=== PATIENT | female | born 1940 | race Caucasian/White ===

== ENCOUNTER 2020-11-29 16:43 | Emergency (ER) | payer MEDICARE, MEDICAID ==
--- NOTE | 2020-11-29 17:32 | EDM.PDOC ---
ED HPI GENERAL MEDICAL PROBLEM - General Chief Complaint: Lower Extremity Injury/Pain Stated Complaint: RT HIP/FELL Time Seen by Provider: 11/29/20 16:45 Source of Information: Reports: Patient, RN History Limitations: Reports: No Limitations - History of Present Illness INITIAL COMMENTS - FREE TEXT/NARRATIVE: States that she was standing in her house when she went to turn and her right toe got caught and she then fell. She laid on the floor trying to get to the phone for about an hour before getting help. She is complaining of right hip pain. She denies any numbness or tingling. Onset: Sudden Location: Reports: Lower Extremity, Right Quality: Reports: Sharp Right Hip Pain Score (Numeric/FACES): 8 - Related Data Allergies Allergy/AdvReac Type Severity Reaction Status Date / Time indomethacin [From Indocin] Allergy Redness Verified 08/07/18 13:01 indomethacin sodium Allergy Redness Verified 08/07/18 13:01 [From Indocin] meperidine HCl [From Demerol] Allergy Ringing in Verified 08/07/18 13:01 the Ears Penicillins Allergy Anaphylactic Verified 08/07/18 13:01 Shock Home Meds: Home Meds Acetaminophen [Tylenol] 1,000 mg PO Q6H PRN 03/24/13 [History] Furosemide [Lasix] 40 mg PO DAILY 03/24/13 [History] Levothyroxine [Sythroid] 88 mcg PO DAILY 03/24/13 [History] Potassium Chloride 10 meq PO DAILY 03/24/13 [History] Losartan [Cozaar] 50 mg PO DAILY 11/29/20 [History] Past Medical History HEENT History: Reports: Cataract, Glaucoma Gastrointestinal History: Reports: Diverticulosis, Other (See Below) (ulcers) - Past Surgical History HEENT Surgical History: Reports: Cataract Surgery GI Surgical History: Reports: Appendectomy Female Surgical History: Reports: Tubal Ligation Endocrine Surgical History: Reports: Thyroidectomy Musculoskeletal Surgical History: Reports: Other (See Below) (wrist fracture with surgical repair.) Social & Family History - Family History Cardiac: Reports: CAD Endocrine/Metabolic: Reports: Diabetes, Type I, Diabetes, type II Oncologic: Reports: Other (See Below) (kidney) Review of Systems - Review of Systems Review Of Systems: See Below Constitutional: Reports: No Symptoms Eyes: Reports: No Symptoms Ears: Reports: No Symptoms Nose: Reports: No Symptoms Mouth/Throat: Reports: No Symptoms Respiratory: Reports: No Symptoms Cardiovascular: Reports: No Symptoms GI/Abdominal: Reports: No Symptoms Musculoskeletal: Reports: Leg Pain Skin: Reports: No Symptoms Neurological: Reports: Other (forgetful) Psychiatric: Reports: No Symptoms ED EXAM, GENERAL - Physical Exam Exam: See Below Exam Limited By: No Limitations General Appearance: Alert, WD/WN, Moderate Distress Ears: Normal External Exam, Normal Canal, Normal TMs Nose: Normal Inspection Throat/Mouth: Normal Inspection, Normal Oropharynx Head: Atraumatic, Normocephalic Neck: Normal Inspection, Supple, Non-Tender, Full Range of Motion Respiratory/Chest: No Respiratory Distress, Lungs Clear, Normal Breath Sounds, Chest Non-Tender Cardiovascular: Regular Rate, Rhythm, No Edema GI/Abdominal: Normal Bowel Sounds, Soft, Non-Tender Back Exam: Normal Inspection Extremities: Normal Inspection, No Pedal Edema, Other (Pain to the right hip area with any movement or touch.) Neurological: Alert, Oriented Skin Exam: Warm, Dry Course - Vital Signs Last Recorded V/S: Last Vital Signs Temp 97.5 F 11/29/20 16:45 Pulse 64 11/29/20 16:45 Resp 20 11/29/20 16:45 BP 147/74 H 11/29/20 16:45 Pulse Ox 95 11/29/20 16:45 - Orders/Labs/Meds Orders: Active Orders 24 hr Category Date Time Status Hip Min 2V or 3V w Pelvis Rt [CR] Routine Exams 11/29/20 Taken Labs: Laboratory Tests 11/29/20 11/29/20 Range/Units 17:40 17:40 WBC 10.3 (4.0-11.0) 10^3/uL RBC 3.68 L (4.00-5.50) x10^6/uL Hgb 11.8 L (12.0-16.0) g/dL Hct 35.5 L (37.0-47.0) % MCV 96.5 (83.0-97.0) fL MCH 32.1 H (27.0-32.0) pg MCHC 33.2 (32.0-36.0) g/dL RDW Coeff of Eulalio 13.8 (11.0-15.0) % Plt Count 238 (150-400) 10^3/uL Immature Gran % (Auto) 0.4 (0.0-4.9) % Neut % (Auto) 79.7 H (41-71) % Lymph % (Auto) 13.0 L (24-44) % Hardeman % (Auto) 5.6 (0-10) % Eos % (Auto) 0.8 (0-6) % Baso % (Auto) 0.5 (0-1) % Neut # (Auto) 8.20 H (1.80-8.00) x10^3/uL Lymph # (Auto) 1.33 (0.60-5.00) 10^3/uL Hardeman # (Auto) 0.57 (0.00-1.50) 10^3/uL Eos # (Auto) 0.08 (0.00-1.50) 10^3/uL Baso # (Auto) 0.05 (0.00-0.50) 10^3/uL Immature Gran # (Auto) 0.04 (0.00-0.49) 10^3/uL Sodium 142 (136-145) mEq/L Potassium 4.0 (3.5-5.0) mEq/L Chloride 104 (98-106) mEq/L Carbon Dioxide 28 (21-32) mmol/L BUN 26 H (7-18) mg/dL Creatinine 1.4 H (0.6-1.0) mg/dL Est Cr Clr Drug Dosing 24.93 mL/min Estimated GFR (MDRD) 36 L (>=60) mL/min Glucose 121 H (75-99) mg/dL Calcium 8.9 (8.4-10.1) mg/dL Meds: Medications Discontinued Medications Generic Name Dose Route Start Last Admin Trade Name Freq PRN Reason Stop Dose Admin Fentanyl Confirm 11/29/20 16:41 11/29/20 17:51 Fentanyl 100 Mcg/2 Ml Sdv Administered 11/29/20 16:42 Not Given Dose 100 mcg .ROUTE .STK-MED ONE Fentanyl 50 mcg 11/29/20 17:42 11/29/20 17:46 Fentanyl 50 Mcg/Ml Sdv IVPUSH 11/29/20 17:43 50 mcg ONETIME ONE Administration - Re-Assessments/Exams Free Text/Narrative Re-Assessment/Exam: 11/29/20 18:[address] Mendoza [place] [facility] and he is willing to take the pt in transfer tonight. She will be transferred per BLS ambulance to [facility]. Risks of being transferred include uncontrolled pain. benefits of transfer would include retail loss prevention specialist. risk of nontransfer would include increase in pain and improper healing benefit would be to be close to home. She does request transfer. Departure - Departure Time of Disposition: 18:13 Disposition: DC/Tfer to [facility] Condition: Good Clinical Impression: Intertrochanteric fracture, hip - Discharge Information *PRESCRIPTION DRUG MONITORING PROGRAM REVIEWED*: Not Applicable *COPY OF PRESCRIPTION DRUG MONITORING REPORT IN PATIENT YOUSIF: Not Applicable Forms: ED Department Discharge Sepsis Event Note (ED) - Focused Exam Vital Signs: Vital Signs Temp Pulse Resp BP Pulse Ox 11/29/20 16:45 97.5 F 64 20 147/74 H 95 - Problem List & Annotations (1) Intertrochanteric fracture, hip SNOMED Code(s): 912975586 Code(s): S72.143A - DISPLACED INTERTROCHANTERIC FRACTURE OF UNSP FEMUR, INIT Status: Acute Priority: High - Problem List Review Problem List Initiated/Reviewed/Updated: Yes - My Orders Last 24 Hours: My Active Orders 11/29/20 Hip Min 2V or 3V w Pelvis Rt [CR] Routine - Assessment/Plan Last 24 Hours: My Active Orders 11/29/20 Hip Min 2V or 3V w Pelvis Rt [CR] Routine
[2020-11-29] MEDS: fentaNYL 50 MCG/ML SDV IVPUSH ONE ×2 (17:46→18:46)
[2020-11-29] MEDS: fentaNYL 100 MCG/2 ML SDV ONE (17:51)
== END 2020-11-29 19:10 | disposition critical access hospital (66) ==
LOC: CC.ED 16:43
DX: S72.141A Displaced intertrochanteric fracture of right femur, initial encounter for closed fracture (principal); Z88.0 Allergy status to penicillin; Z88.6 Allergy status to analgesic agent; Z79.899 Other long term (current) drug therapy; W17.89XA Other fall from one level to another, initial encounter
CPT/HCPCS: 36415; 80048; 85025; 96374; 96376; 99285-25; J3010

== ENCOUNTER 2020-12-02 09:23 | Inpatient (IN) | payer MEDICARE, MEDICAID ==
[2020-12-02] MEDS ORDERED: Acetaminophen 325 MG Tab PO PRN (12:41)
[2020-12-02] MEDS ORDERED: Cyclobenzaprine 10 MG Tab PO PRN (12:43)
[2020-12-02] MEDS: Acetaminophen/HYDROcodone 325-5 MG Tab PO PRN ×2 (13:00→20:15)
--- NOTE | 2020-12-02 19:17 | HP ---
CHIEF COMPLAINT: Swing bed placement. HISTORY OF PRESENT ILLNESS: Chuyita is an 80-year-old, very pleasant female, well known to me, who fell this past Sunday and sustained a right hip fracture. She went to [place] where Dr. Mendoza did an ORIF on her. She has had an uneventful postop course. She is here for swing bed placement and rehab with PT. For the most part, she is not having any complaints of pain. PAST MEDICAL HISTORY: 1. History of hypertension. 2. Hypothyroidism. 3. Nicotine addiction. 4. Osteoporosis. PAST SURGICAL HISTORY: 1. Appendectomy. 2. Prior cataract surgery. 3. A complete thyroidectomy. 4. History of tubal ligation. 5. Spinal surgery. ALLERGIES: INCLUDE ASPIRIN, CODEINE, VICODIN, DEMEROL, INDOCIN, IODINE, LOTENSIN, SULFA, EGGS, AND SHELLFISH. CURRENT MEDICATIONS: See chart. SOCIAL HISTORY: The patient is . Lives alone in [place]. Her lives in [place], I believe. She continues to smoke. Denies any alcohol or drug use. FAMILY HISTORY: Significant for diabetes, hypertension, and heart disease. REVIEW OF SYSTEMS: Essentially negative. Patient specifically denies any fevers, chills, shortness of breath, chest pain. No abdominal pain, diarrhea, constipation, melena, or hematochezia. PHYSICAL EXAMINATION: VITAL SIGNS: Are noted. HEENT: Grossly benign. NECK: Supple. No adenopathy felt. LUNGS: Sounds are clear to both bases. CARDIAC: Tones are regular with normal S1, S2. ABDOMEN: Soft and nontender. EXTREMITIES: No peripheral edema is seen. Pulses are palpable in each foot. SKIN: Without any worrisome rash. Wound is not evaluated in her right hip as she just sat down and is fully dressed. ASSESSMENT: 1. SWING BED PLACEMENT FOR HIP FRACTURE, STATUS POST OPEN REDUCTION AND INTERNAL FIXATION. 2. HYPERTENSION, CONTROLLED. 3. OSTEOPOROSIS. 4. NICOTINE ADDICTION. 5. HYPOTHYROIDISM. PLAN: Orders were written. PT will be consulted. Management, expectant. DONNAP/MODL /[id number]
[2020-12-02] MEDS: Apixaban 5 MG Tab PO SCH (20:15)
[2020-12-02] MEDS: Latanoprost 0.005% Ophth Soln 2.5 ML Bottle EYEBOTH SCH (20:15)
[2020-12-03] MEDS: Acetaminophen/HYDROcodone 325-5 MG Tab PO PRN ×4 (01:47→20:09)
[2020-12-03] MEDS: Levothyroxine 88 MCG Tab PO SCH (06:25)
[2020-12-03] MEDS: Cholecalciferol (Vitamin D3) 25 MCG Tab PO SCH (08:10)
[2020-12-03] MEDS: Apixaban 5 MG Tab PO SCH ×2 (08:13→20:03)
[2020-12-03] MEDS: Losartan 100 MG Tab PO SCH (08:14)
[2020-12-03] MEDS: Potassium Chloride 10 MEQ Tab.ER PO SCH (08:14)
[2020-12-03] MEDS: Furosemide 40 MG Tab PO SCH (08:19)
[2020-12-03] MEDS: Ferrous Sulfate 324 MG Tab.EC PO SCH ×2 (09:01→17:46)
[2020-12-03] MEDS: Latanoprost 0.005% Ophth Soln 2.5 ML Bottle EYEBOTH SCH (20:03)
[2020-12-04] MEDS: Levothyroxine 88 MCG Tab PO SCH (06:16)
[2020-12-04] MEDS: Ferrous Sulfate 324 MG Tab.EC PO SCH ×2 (07:42→16:54)
[2020-12-04] MEDS: Potassium Chloride 10 MEQ Tab.ER PO SCH (07:42)
[2020-12-04] MEDS: Losartan 100 MG Tab PO SCH (07:42)
[2020-12-04] MEDS: Apixaban 5 MG Tab PO SCH ×2 (07:42→19:08)
[2020-12-04] MEDS: Furosemide 40 MG Tab PO SCH (07:42)
[2020-12-04] MEDS: Cholecalciferol (Vitamin D3) 25 MCG Tab PO SCH (07:42)
[2020-12-04] MEDS: Acetaminophen/HYDROcodone 325-5 MG Tab PO PRN ×3 (08:32→19:11)
[2020-12-04] MEDS: Docusate Sodium 100 MG Cap PO PRN (13:37)
[2020-12-04] MEDS: Latanoprost 0.005% Ophth Soln 2.5 ML Bottle EYEBOTH SCH (19:08)
[2020-12-05] MEDS: Acetaminophen/HYDROcodone 325-5 MG Tab PO PRN ×4 (01:13→20:49)
[2020-12-05] MEDS: Furosemide 40 MG Tab PO SCH (07:56)
[2020-12-05] MEDS: Levothyroxine 88 MCG Tab PO SCH (07:56)
[2020-12-05] MEDS: Losartan 100 MG Tab PO SCH (07:56)
[2020-12-05] MEDS: Apixaban 5 MG Tab PO SCH ×2 (07:56→19:58)
[2020-12-05] MEDS: Cholecalciferol (Vitamin D3) 25 MCG Tab PO SCH (07:56)
[2020-12-05] MEDS: Potassium Chloride 10 MEQ Tab.ER PO SCH (07:56)
[2020-12-05] MEDS: Ferrous Sulfate 324 MG Tab.EC PO SCH ×2 (07:57→17:46)
[2020-12-05] MEDS: Latanoprost 0.005% Ophth Soln 2.5 ML Bottle EYEBOTH SCH (19:57)
[2020-12-05] MEDS: diphenhydrAMINE 25 MG Cap PO PRN (19:58)
[2020-12-06] MEDS: Acetaminophen/HYDROcodone 325-5 MG Tab PO PRN ×3 (03:29→19:37)
[2020-12-06] MEDS: Levothyroxine 88 MCG Tab PO SCH (06:31)
[2020-12-06] MEDS: Losartan 100 MG Tab PO SCH (07:58)
[2020-12-06] MEDS: Potassium Chloride 10 MEQ Tab.ER PO SCH (07:59)
[2020-12-06] MEDS: Apixaban 5 MG Tab PO SCH ×2 (07:59→19:37)
[2020-12-06] MEDS: Furosemide 40 MG Tab PO SCH (07:59)
[2020-12-06] MEDS: Ferrous Sulfate 324 MG Tab.EC PO SCH ×2 (07:59→17:56)
[2020-12-06] MEDS: Cholecalciferol (Vitamin D3) 25 MCG Tab PO SCH (08:00)
[2020-12-06] MEDS: Docusate Sodium 100 MG Cap PO PRN ×2 (11:20→19:35)
[2020-12-06] MEDS: Latanoprost 0.005% Ophth Soln 2.5 ML Bottle EYEBOTH SCH (19:35)
[2020-12-06] MEDS: diphenhydrAMINE 25 MG Cap PO PRN (19:37)
[2020-12-07] MEDS: Acetaminophen/HYDROcodone 325-5 MG Tab PO PRN ×2 (03:27→20:10)
[2020-12-07] MEDS: Levothyroxine 88 MCG Tab PO SCH (06:01)
[2020-12-07] MEDS ORDERED: Polyethylene Glycol 3350 Powder 17 GM Packet PO ONE (07:17)
[2020-12-07] MEDS: Cholecalciferol (Vitamin D3) 25 MCG Tab PO SCH (07:44)
[2020-12-07] MEDS: Ferrous Sulfate 324 MG Tab.EC PO SCH ×2 (07:44→16:46)
[2020-12-07] MEDS: Apixaban 5 MG Tab PO SCH ×2 (07:44→20:10)
[2020-12-07] MEDS: Losartan 100 MG Tab PO SCH (07:45)
[2020-12-07] MEDS: Furosemide 40 MG Tab PO SCH (07:46)
[2020-12-07] MEDS: Potassium Chloride 10 MEQ Tab.ER PO SCH (07:49)
[2020-12-07] MEDS: Acetaminophen 500 MG Tab PO PRN (12:30)
[2020-12-07] MEDS: Latanoprost 0.005% Ophth Soln 2.5 ML Bottle EYEBOTH SCH (20:17)
[2020-12-08] MEDS: Levothyroxine 88 MCG Tab PO SCH (06:07)
[2020-12-08] MEDS: Acetaminophen/HYDROcodone 325-5 MG Tab PO PRN ×3 (06:07→22:00)
[2020-12-08] MEDS: Losartan 100 MG Tab PO SCH (07:28)
[2020-12-08] MEDS: Polyethylene Glycol 3350 Powder 17 GM Packet PO SCH (07:28)
[2020-12-08] MEDS: Furosemide 40 MG Tab PO SCH (07:29)
[2020-12-08] MEDS: Apixaban 5 MG Tab PO SCH ×2 (07:29→19:45)
[2020-12-08] MEDS: Potassium Chloride 10 MEQ Tab.ER PO SCH (07:30)
[2020-12-08] MEDS: Ferrous Sulfate 324 MG Tab.EC PO SCH ×2 (07:30→16:51)
[2020-12-08] MEDS: Cholecalciferol (Vitamin D3) 25 MCG Tab PO SCH (07:30)
[2020-12-08] MEDS: Latanoprost 0.005% Ophth Soln 2.5 ML Bottle EYEBOTH SCH (19:49)
[2020-12-09] MEDS: Levothyroxine 88 MCG Tab PO SCH (06:38)
[2020-12-09] MEDS: Potassium Chloride 10 MEQ Tab.ER PO SCH (07:36)
[2020-12-09] MEDS: Apixaban 5 MG Tab PO SCH ×2 (07:36→20:34)
[2020-12-09] MEDS: Polyethylene Glycol 3350 Powder 17 GM Packet PO SCH (07:36)
[2020-12-09] MEDS: Losartan 100 MG Tab PO SCH (07:36)
[2020-12-09] MEDS: Furosemide 40 MG Tab PO SCH (07:36)
[2020-12-09] MEDS: Ferrous Sulfate 324 MG Tab.EC PO SCH ×2 (07:37→17:34)
[2020-12-09] MEDS: Cholecalciferol (Vitamin D3) 25 MCG Tab PO SCH (07:37)
[2020-12-09] MEDS: Acetaminophen/HYDROcodone 325-5 MG Tab PO PRN ×2 (11:05→16:08)
[2020-12-09] MEDS ORDERED: Ondansetron 4 MG Tab.DIS PO PRN (17:34)
[2020-12-09] MEDS: Latanoprost 0.005% Ophth Soln 2.5 ML Bottle EYEBOTH SCH (20:39)
[2020-12-10] MEDS: Acetaminophen/HYDROcodone 325-5 MG Tab PO PRN ×3 (00:34→20:19)
[2020-12-10] MEDS: Levothyroxine 88 MCG Tab PO SCH (06:01)
[2020-12-10] MEDS: Cholecalciferol (Vitamin D3) 25 MCG Tab PO SCH (07:48)
[2020-12-10] MEDS: Potassium Chloride 10 MEQ Tab.ER PO SCH (07:48)
[2020-12-10] MEDS: Furosemide 40 MG Tab PO SCH (07:48)
[2020-12-10] MEDS: Losartan 100 MG Tab PO SCH (07:48)
[2020-12-10] MEDS: Polyethylene Glycol 3350 Powder 17 GM Packet PO SCH (07:48)
[2020-12-10] MEDS: Apixaban 5 MG Tab PO SCH ×2 (07:49→20:03)
[2020-12-10] MEDS: Ferrous Sulfate 324 MG Tab.EC PO SCH ×2 (07:49→17:37)
[2020-12-10] MEDS: Latanoprost 0.005% Ophth Soln 2.5 ML Bottle EYEBOTH SCH (20:05)
[2020-12-11] MEDS: Levothyroxine 88 MCG Tab PO SCH (06:20)
[2020-12-11] MEDS: Cholecalciferol (Vitamin D3) 25 MCG Tab PO SCH (08:11)
[2020-12-11] MEDS: Polyethylene Glycol 3350 Powder 17 GM Packet PO SCH (08:11)
[2020-12-11] MEDS: Apixaban 5 MG Tab PO SCH ×2 (08:12→19:34)
[2020-12-11] MEDS: Ferrous Sulfate 324 MG Tab.EC PO SCH ×2 (08:12→17:34)
[2020-12-11] MEDS: Furosemide 40 MG Tab PO SCH (08:12)
[2020-12-11] MEDS: Potassium Chloride 10 MEQ Tab.ER PO SCH (08:13)
[2020-12-11] MEDS: Acetaminophen/HYDROcodone 325-5 MG Tab PO PRN ×2 (08:13→22:28)
[2020-12-11] MEDS: Losartan 100 MG Tab PO SCH (08:13)
[2020-12-11] MEDS: Latanoprost 0.005% Ophth Soln 2.5 ML Bottle EYEBOTH SCH (19:35)
[2020-12-12] MEDS: Levothyroxine 88 MCG Tab PO SCH (06:45)
[2020-12-12] MEDS: Losartan 100 MG Tab PO SCH (07:50)
[2020-12-12] MEDS: Potassium Chloride 10 MEQ Tab.ER PO SCH (07:51)
[2020-12-12] MEDS: Apixaban 5 MG Tab PO SCH ×2 (07:51→19:23)
[2020-12-12] MEDS: Ferrous Sulfate 324 MG Tab.EC PO SCH ×2 (07:51→17:25)
[2020-12-12] MEDS: Cholecalciferol (Vitamin D3) 25 MCG Tab PO SCH (07:52)
[2020-12-12] MEDS: Polyethylene Glycol 3350 Powder 17 GM Packet PO SCH (07:52)
[2020-12-12] MEDS: Furosemide 40 MG Tab PO SCH (07:52)
[2020-12-12] MEDS: Acetaminophen/HYDROcodone 325-5 MG Tab PO PRN ×3 (07:59→21:28)
[2020-12-12] MEDS: Latanoprost 0.005% Ophth Soln 2.5 ML Bottle EYEBOTH SCH (19:24)
[2020-12-13] MEDS: Levothyroxine 88 MCG Tab PO SCH (06:51)
[2020-12-13] MEDS: Apixaban 5 MG Tab PO SCH ×2 (07:32→19:41)
[2020-12-13] MEDS: Ferrous Sulfate 324 MG Tab.EC PO SCH ×2 (07:32→16:34)
[2020-12-13] MEDS: Furosemide 40 MG Tab PO SCH (07:32)
[2020-12-13] MEDS: Losartan 100 MG Tab PO SCH (07:32)
[2020-12-13] MEDS: Potassium Chloride 10 MEQ Tab.ER PO SCH (07:33)
[2020-12-13] MEDS: Cholecalciferol (Vitamin D3) 25 MCG Tab PO SCH (07:33)
[2020-12-13] MEDS: Polyethylene Glycol 3350 Powder 17 GM Packet PO SCH (07:34)
[2020-12-13] MEDS: Acetaminophen/HYDROcodone 325-5 MG Tab PO PRN ×2 (09:21→16:33)
[2020-12-13] MEDS: Latanoprost 0.005% Ophth Soln 2.5 ML Bottle EYEBOTH SCH (19:41)
[2020-12-13] MEDS: diphenhydrAMINE 25 MG Cap PO PRN (19:41)
[2020-12-13] MEDS: Acetaminophen 500 MG Tab PO PRN (23:09)
[2020-12-14] MEDS: Levothyroxine 88 MCG Tab PO SCH (06:05)
[2020-12-14] MEDS: Furosemide 40 MG Tab PO SCH (07:44)
[2020-12-14] MEDS: Acetaminophen/HYDROcodone 325-5 MG Tab PO PRN ×2 (07:45→16:19)
[2020-12-14] MEDS: Potassium Chloride 10 MEQ Tab.ER PO SCH (07:45)
[2020-12-14] MEDS: Ferrous Sulfate 324 MG Tab.EC PO SCH ×2 (07:45→17:28)
[2020-12-14] MEDS: Cholecalciferol (Vitamin D3) 25 MCG Tab PO SCH (07:46)
[2020-12-14] MEDS: Losartan 100 MG Tab PO SCH (07:46)
[2020-12-14] MEDS: Polyethylene Glycol 3350 Powder 17 GM Packet PO SCH (07:47)
[2020-12-14] MEDS: Apixaban 5 MG Tab PO SCH ×2 (07:47→19:55)
[2020-12-14] MEDS: Latanoprost 0.005% Ophth Soln 2.5 ML Bottle EYEBOTH SCH (20:00)
[2020-12-15] MEDS: Levothyroxine 88 MCG Tab PO SCH (06:05)
[2020-12-15] MEDS: Apixaban 5 MG Tab PO SCH ×2 (07:53→20:24)
[2020-12-15] MEDS: Losartan 100 MG Tab PO SCH (07:54)
[2020-12-15] MEDS: Ferrous Sulfate 324 MG Tab.EC PO SCH ×2 (07:54→18:47)
[2020-12-15] MEDS: Cholecalciferol (Vitamin D3) 25 MCG Tab PO SCH (07:54)
[2020-12-15] MEDS: Furosemide 40 MG Tab PO SCH (07:54)
[2020-12-15] MEDS: Polyethylene Glycol 3350 Powder 17 GM Packet PO SCH (07:55)
[2020-12-15] MEDS: Acetaminophen 500 MG Tab PO PRN (07:55)
[2020-12-15] MEDS: Potassium Chloride 10 MEQ Tab.ER PO SCH (08:00)
[2020-12-15] MEDS: Acetaminophen/HYDROcodone 325-5 MG Tab PO PRN ×2 (11:57→20:24)
[2020-12-15] MEDS: Latanoprost 0.005% Ophth Soln 2.5 ML Bottle EYEBOTH SCH (20:24)
[2020-12-16] MEDS: Levothyroxine 88 MCG Tab PO SCH (06:33)
[2020-12-16] MEDS: Losartan 100 MG Tab PO SCH (07:33)
[2020-12-16] MEDS: Cholecalciferol (Vitamin D3) 25 MCG Tab PO SCH (07:33)
[2020-12-16] MEDS: Ferrous Sulfate 324 MG Tab.EC PO SCH ×2 (07:33→18:02)
[2020-12-16] MEDS: Apixaban 5 MG Tab PO SCH ×2 (07:33→19:27)
[2020-12-16] MEDS: Potassium Chloride 10 MEQ Tab.ER PO SCH (07:33)
[2020-12-16] MEDS: Furosemide 40 MG Tab PO SCH (07:34)
[2020-12-16] MEDS: Acetaminophen/HYDROcodone 325-5 MG Tab PO PRN ×2 (07:34→22:52)
[2020-12-16] MEDS: Polyethylene Glycol 3350 Powder 17 GM Packet PO SCH (09:30)
--- NOTE | 2020-12-16 10:29 | PCM.SN.2 ---
- Free Text/Narrative Note: Chuyita is an [age]yo female who has been in swing bed status post ORIF of the right hip. She underwent surgery by Dr. Mendoza at [facility] [place] and has been in swing bed status for physical therapy. Patient is due for 14 day recertification. Patient will continue with physical therapy for strengthening and ambulation. Time Documentation
[2020-12-16] MEDS: Latanoprost 0.005% Ophth Soln 2.5 ML Bottle EYEBOTH SCH (19:28)
[2020-12-17] MEDS: Levothyroxine 88 MCG Tab PO SCH (06:38)
[2020-12-17] MEDS: Apixaban 5 MG Tab PO SCH ×2 (07:50→20:00)
[2020-12-17] MEDS: Cholecalciferol (Vitamin D3) 25 MCG Tab PO SCH (07:51)
[2020-12-17] MEDS: Ferrous Sulfate 324 MG Tab.EC PO SCH (07:51)
[2020-12-17] MEDS: Potassium Chloride 10 MEQ Tab.ER PO SCH (07:51)
[2020-12-17] MEDS: Furosemide 40 MG Tab PO SCH (07:51)
[2020-12-17] MEDS: Polyethylene Glycol 3350 Powder 17 GM Packet PO SCH (07:51)
[2020-12-17] MEDS: Losartan 100 MG Tab PO SCH (07:58)
[2020-12-17] MEDS: Acetaminophen/HYDROcodone 325-5 MG Tab PO PRN (13:28)
[2020-12-17] MEDS: Latanoprost 0.005% Ophth Soln 2.5 ML Bottle EYEBOTH SCH (20:00)
[2020-12-18] MEDS: Acetaminophen/HYDROcodone 325-5 MG Tab PO PRN ×3 (00:01→14:31)
[2020-12-18] MEDS: Levothyroxine 88 MCG Tab PO SCH (06:57)
[2020-12-18] MEDS: Cholecalciferol (Vitamin D3) 25 MCG Tab PO SCH (07:03)
[2020-12-18] MEDS: Potassium Chloride 10 MEQ Tab.ER PO SCH (07:03)
[2020-12-18] MEDS: Losartan 100 MG Tab PO SCH (07:03)
[2020-12-18] MEDS: Apixaban 5 MG Tab PO SCH ×2 (07:05→19:27)
[2020-12-18] MEDS: Furosemide 40 MG Tab PO SCH (07:06)
[2020-12-18] MEDS: Polyethylene Glycol 3350 Powder 17 GM Packet PO SCH (07:06)
[2020-12-18] MEDS: Ferrous Sulfate 324 MG Tab.EC PO SCH ×3 (07:06→16:50)
[2020-12-18] MEDS: Latanoprost 0.005% Ophth Soln 2.5 ML Bottle EYEBOTH SCH (20:19)
[2020-12-19] MEDS: Levothyroxine 88 MCG Tab PO SCH (06:41)
[2020-12-19] MEDS: Ferrous Sulfate 324 MG Tab.EC PO SCH ×2 (07:23→17:38)
[2020-12-19] MEDS: Cholecalciferol (Vitamin D3) 25 MCG Tab PO SCH (07:23)
[2020-12-19] MEDS: Losartan 100 MG Tab PO SCH (07:24)
[2020-12-19] MEDS: Furosemide 40 MG Tab PO SCH (07:24)
[2020-12-19] MEDS: Potassium Chloride 10 MEQ Tab.ER PO SCH (07:24)
[2020-12-19] MEDS: Apixaban 5 MG Tab PO SCH ×2 (07:24→20:24)
[2020-12-19] MEDS: Polyethylene Glycol 3350 Powder 17 GM Packet PO SCH (07:28)
[2020-12-19] MEDS: Acetaminophen 500 MG Tab PO PRN ×2 (09:57→22:21)
[2020-12-19] MEDS: Latanoprost 0.005% Ophth Soln 2.5 ML Bottle EYEBOTH SCH (20:24)
[2020-12-20] MEDS: Levothyroxine 88 MCG Tab PO SCH (06:53)
[2020-12-20] MEDS: Furosemide 40 MG Tab PO SCH (08:02)
[2020-12-20] MEDS: Polyethylene Glycol 3350 Powder 17 GM Packet PO SCH (08:02)
[2020-12-20] MEDS: Ferrous Sulfate 324 MG Tab.EC PO SCH ×2 (08:02→17:41)
[2020-12-20] MEDS: Cholecalciferol (Vitamin D3) 25 MCG Tab PO SCH (08:02)
[2020-12-20] MEDS: Apixaban 5 MG Tab PO SCH ×2 (08:03→19:23)
[2020-12-20] MEDS: Losartan 100 MG Tab PO SCH (08:03)
[2020-12-20] MEDS: Potassium Chloride 10 MEQ Tab.ER PO SCH (08:05)
[2020-12-20] MEDS: Acetaminophen 500 MG Tab PO PRN ×2 (10:46→21:20)
[2020-12-20] MEDS: Latanoprost 0.005% Ophth Soln 2.5 ML Bottle EYEBOTH SCH (19:24)
[2020-12-20] MEDS: diphenhydrAMINE 25 MG Cap PO PRN (21:20)
[2020-12-21] MEDS: Levothyroxine 88 MCG Tab PO SCH (07:22)
[2020-12-21] MEDS: Ferrous Sulfate 324 MG Tab.EC PO SCH (07:53)
[2020-12-21] MEDS: Furosemide 40 MG Tab PO SCH (07:53)
[2020-12-21] MEDS: Apixaban 5 MG Tab PO SCH (07:53)
[2020-12-21] MEDS: Cholecalciferol (Vitamin D3) 25 MCG Tab PO SCH (07:53)
[2020-12-21] MEDS: Potassium Chloride 10 MEQ Tab.ER PO SCH (07:53)
[2020-12-21] MEDS: Losartan 100 MG Tab PO SCH (07:54)
[2020-12-21] MEDS: Polyethylene Glycol 3350 Powder 17 GM Packet PO SCH (08:18)
[2020-12-21] MEDS: Acetaminophen 500 MG Tab PO PRN (09:45)
--- NOTE | 2020-12-21 11:42 | DISCH ---
REASON FOR HOSPITALIZATION: Admission diagnoses: 1. Intertrochanteric hip fracture. 2. Swing bed placement for rehab. 3. Hypertension. 4. Osteoporosis. 5. Hypothyroidism. 6. Nicotine addiction. DISCHARGE DIAGNOSIS: 1. INTERTROCHANTERIC HIP FRACTURE. 2. SWING BED PLACEMENT FOR REHAB. 3. HYPERTENSION. 4. OSTEOPOROSIS. 5. HYPOTHYROIDISM. 6. NICOTINE ADDICTION. HISTORY: The patient is an 80-year-old, well known to me, who fell and broke her hip. She required an ORIF by Dr. Mendoza in [place]. Other than postop anemia, she did well. She was sent here for swing bed placement and initiated on oral iron replacement. SWING BED COURSE: The patient did well while here. She has progressed nicely. She is pretty much independent now walking with a walker. She did have a followup hemoglobin in [place], which was apparently improved, I am yet to see that. I am getting another one today before discharge. She will remain on b.i.d. iron. She is not requiring anything other than Tylenol for pain. She will have Home Health to monitor her for vital signs, medication management, pain control, and PT for strengthening. I will see her back in the clinic in 2 weeks. I believe she has a 3-week followup with Ortho. COMPLICATIONS: During her stay were none. CONSULTATIONS: PT. DISPOSITION: Discharged home to Home Health. SARMAD /[id number]
[2020-12-29] MEDS ORDERED: Aspirin 81 MG Tab.EC PO SCH (08:00)
== END 2020-12-21 13:30 | disposition home health service (06) | DRG 561 ==
LOC: UNDOADMIN 11:45 → CC.MS 11:45
PROVIDERS: ADMIT Family Medicine; ATTEND Family Medicine
DX: S72.141D Displaced intertrochanteric fracture of right femur, subsequent encounter for closed fracture with routine healing (principal); I10 Essential (primary) hypertension; M81.0 Age-related osteoporosis without current pathological fracture; E03.9 Hypothyroidism, unspecified; F17.200 Nicotine dependence, unspecified, uncomplicated; Z90.49 Acquired absence of other specified parts of digestive tract; Z98.51 Tubal ligation status; Z88.5 Allergy status to narcotic agent; Z88.2 Allergy status to sulfonamides; Z91.041 Radiographic dye allergy status; Z91.012 Allergy to eggs; Z91.013 Allergy to seafood; Z88.6 Allergy status to analgesic agent
CPT/HCPCS: 36415; 85018; 85025; 97110-GP; 97116-GP; 97161-GP; 97530-GP; A9270-GY

== ENCOUNTER 2021-04-11 10:01 | Emergency (ER) | payer MEDICARE, MEDICAID ==
[2021-04-11] MEDS: Ondansetron 4 MG/2 ML SDV IVPUSH STA (11:25)
== END 2021-04-11 13:04 | disposition home or self-care (01) ==
LOC: CC.ED 10:01
DX: N39.0 Urinary tract infection, site not specified (principal); R11.2 Nausea with vomiting, unspecified; I10 Essential (primary) hypertension; Z72.0 Tobacco use; Z88.5 Allergy status to narcotic agent; Z88.0 Allergy status to penicillin; Z88.2 Allergy status to sulfonamides; Z79.82 Long term (current) use of aspirin; Z88.7 Allergy status to serum and vaccine; Z79.01 Long term (current) use of anticoagulants; Z79.899 Other long term (current) drug therapy; Z20.822 Contact with and (suspected) exposure to COVID-19
CPT/HCPCS: 36415; 80053; 81001; 85025; 86140; 87086; 87804; 96374; 99284-25; J2405; U0002

== ENCOUNTER 2021-04-28 13:49 | Emergency (ER) | payer MEDICARE, MEDICAID ==
[2021-04-28] MEDS ORDERED: Sodium Chloride 0.9% 10 ML Syringe FLUSH PRN (14:06)
[2021-04-28] MEDS ORDERED: Ondansetron 4 MG/2 ML SDV IVPUSH STA (14:06)
[2021-04-28 14:35] LABS: CHLORIDE,CL 103 mEq/L (98-106); SODIUM,NA 141 mEq/L (136-145)
== END 2021-04-28 17:15 ==
LOC: CC.ED 13:49
DX: R51.9 Headache, unspecified (principal); R11.2 Nausea with vomiting, unspecified; G93.9 Disorder of brain, unspecified; I10 Essential (primary) hypertension; Z88.5 Allergy status to narcotic agent; Z88.0 Allergy status to penicillin; Z88.2 Allergy status to sulfonamides; Z88.7 Allergy status to serum and vaccine; Z88.8 Allergy status to other drugs, medicaments and biological substances; Z79.01 Long term (current) use of anticoagulants; Z79.82 Long term (current) use of aspirin; Z79.899 Other long term (current) drug therapy
CPT/HCPCS: 36415; 70450; 80053; 81001; 84484; 85025; 86140; 93005; 93010; 96374; 99284; 99285-25; J2405

== ENCOUNTER 2021-06-09 17:28 | Emergency (ER) | payer MEDICARE, MEDICAID ==
[2021-06-09] MEDS ORDERED: Morphine 2 MG/ML SYRINGE IVPUSH ONE (17:42)
[2021-06-09] MEDS ORDERED: Sodium Chloride 0.9% 10 ML Syringe FLUSH PRN (17:42)
[2021-06-09 18:14] LABS: CHLORIDE,CL 101 mEq/L (98-106); SODIUM,NA 139 mEq/L (136-145)
[2021-06-09] MEDS ORDERED: Magnesium Citrate Solution 296 ML Bottle PO ONE (18:57)
== END 2021-06-09 19:48 | disposition home or self-care (01) ==
LOC: CC.ED 17:28
DX: K59.01 Slow transit constipation (principal); I10 Essential (primary) hypertension; Z88.5 Allergy status to narcotic agent; Z88.0 Allergy status to penicillin; Z88.2 Allergy status to sulfonamides; Z88.7 Allergy status to serum and vaccine; Z88.8 Allergy status to other drugs, medicaments and biological substances; Z91.041 Radiographic dye allergy status
CPT/HCPCS: 36415; 74176; 80053; 85025; 86140; 96374; 99284; 99284-25; A9270-GY; J2270